=== PATIENT | female | born 1955 | race Caucasian/White ===

== ENCOUNTER → 2017-08-12 | Outpatient (CLI) | payer OTHER ==
--- NOTE | 2017-08-12 10:17 | US ---
EXAM DESCRIPTION: Soft Tissue,Head/Neck CLINICAL HISTORY: MASS, PAIN COMPARISON: None Available. TECHNIQUE: Grayscale imaging of the posterior neck in an area of palpable abnormality in the midline. FINDINGS: Sonographic evaluation of the posterior neck in the area of palpable abnormality demonstrates a hypoechoic estimated 2.9 x 1.4 x 0.9 cm area of abnormality that appears to extend from the deep subcutaneous tissue towards the spinous process in the midline. Although hypoechoic, this does not have a cystic appearance and does not have the typical echogenic appearance of a benign lipoma. Further evaluation with MRI without and with contrast enhancement with attention to the area of concern is recommended. A debris-filled cystic structure would be a consideration. The appearance does not have the typical irregular oval or rounded appearance of a malignancy or hypervascular mass and there is no associated increased flow at color Doppler imaging. IMPRESSION: Abnormal sonogram of the posterior neck in the area of concern with a hypoechoic somewhat T-shaped deep subcutaneous structure extending towards the spinous process in the midline estimated at 2.9 x 1.4 x 0.9 cm. Further evaluation with MRI examination without and with contrast enhancement recommended. Electronically signed by: Carlos Brady MD 08/12/2017 10:16 AM [facility]
== END | disposition home or self-care (01) ==
LOC: US 07:24
PROVIDERS: ATTEND Family Medicine
DX: R22.9 Localized swelling, mass and lump, unspecified (principal)

== ENCOUNTER → 2017-08-20 | Outpatient (CLI) | payer OTHER ==
--- NOTE | 2017-08-21 08:31 | MRI ---
EXAM DESCRIPTION: Neck w/wo Contrast CLINICAL HISTORY: NECK MASS COMPARISON: None Available. TECHNIQUE: MRI of the neck is performed according to our usual protocol with multiplanar multi sequence imaging. Gadolinium performed as well. FINDINGS: There is a marker placed posteriorly in the midline at about the C4-5 level. There is no abnormal finding beneath the marker. I do not identify any pathologic mass or cyst or soft tissue abnormality in the posterior cervical soft tissues. Note is made of multilevel cervical spondylosis with disc space narrowing and disc bulging C4-5 and especially C5-6 and C6-7. There is no resulting spinal stenosis. Post gadolinium imaging demonstrates no abnormal post gadolinium enhancement. IMPRESSION: Cervical spondylosis No mass or worrisome finding seen in the posterior cervical soft tissues. Electronically signed by: Lm Isidro MD 08/21/2017 8:29 AM [facility]
== END | disposition home or self-care (01) ==
LOC: MRI 06:57
PROVIDERS: ATTEND Family Medicine
DX: M47.892 Other spondylosis, cervical region (principal)

== ENCOUNTER → 2018-04-25 | Outpatient (CLI) | payer OTHER | LOC: GMAM 10:25 | PROVIDERS: ATTEND Family Medicine | DX: Z00.00 Encounter for general adult medical examination without abnormal findings (principal) ==

== ENCOUNTER → 2018-07-24 | Outpatient (CLI) | payer OTHER ==
--- NOTE | 2018-07-24 10:03 | RAD ---
Three-view right wrist. 3 views left wrist. Indication: Bilateral wrist pain Comparison: None. Impression: No acute fracture of the right wrist or left wrist identified. If there is persistent anatomic snuffbox tenderness, repeat wrist imaging to include a scaphoid view is recommended in one week to evaluate for occult scaphoid fracture. 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 Mild cystic change of the proximal aspects of the lunate bones bilaterally suggesting features of ulnar impaction. Mild osteoarthritis bilateral STT joints and first CMC joints. MRI could better evaluate these findings as clinically indicated. Soft tissues are intact without radiopaque foreign body. Electronically signed by: Lane Fairbanks MD 07/24/2018 10:02 AM [facility]
== END ==
LOC: RAD 07:54
PROVIDERS: ATTEND Orthopaedic Surgery
DX: M19.031 Primary osteoarthritis, right wrist (principal); M19.032 Primary osteoarthritis, left wrist; M25.531 Pain in right wrist; M25.532 Pain in left wrist